=== PATIENT | female | born 1940 | race Caucasian/White ===

== ENCOUNTER → 2023-07-30 13:38 | Outpatient (REF) | payer MEDICARE, OTHER, SELFPAY | LOC: HWRAD 13:38 | PROVIDERS: ATTENDING PHYSICIAN Internal Medicine | DX: Z91.89 Other specified personal risk factors, not elsewhere classified (principal); M81.0 Age-related osteoporosis without current pathological fracture | CPT/HCPCS: 77080 ==

== ENCOUNTER → 2023-08-03 11:37 | Outpatient (REF) | payer MEDICARE, OTHER, SELFPAY | LOC: HWRAD 11:37 | PROVIDERS: ATTENDING PHYSICIAN Internal Medicine | DX: R42 Dizziness and giddiness (principal); D3A.8 Other benign neuroendocrine tumors; Z85.820 Personal history of malignant melanoma of skin; R05.3 Chronic cough | CPT/HCPCS: 71046 ==

== ENCOUNTER → 2024-02-11 11:16 | Outpatient (REF) | payer MEDICARE, OTHER, SELFPAY ==
[2024-02-11 16:33] LABS: ALT (SGPT) 15 U/L (0-35); AST (SGOT) 25 U/L (14-36); Albumin 4.5 g/dl (3.5-5.0); Alkaline Phosphatase 56 U/L (38-126); Blood Urea Nitrogen 27 mg/dl (7-17); Calcium 9.6 mg/dl (8.4-10.2); Carbon Dioxide 25 mmol/L (22-30); Chloride 102 mmol/L (98-107); Glucose 105 mg/dl (70-99); HDL Cholesterol 89 mg/dl; LDL Cholesterol, Calculated 95 mg/dl; Potassium 4.5 mmol/L (3.5-5.1); Sodium 139 mmol/L (135-145); Total Bilirubin 0.5 mg/dl (0.2-1.3); Total Cholesterol 198 mg/dl (50-199); Total Protein 6.9 g/dl (6.3-8.2); Triglyceride 71 mg/dl (10-149); Very Low Density Lipoprotein 14 mg/dl (0-30); eGFR > 60.00
[2024-02-11 16:40] LABS: % Basophils 0.5 % (0-2); % Eosinophils 0.5 % (0-6); % Immature Granulocytes 0.2 % (0-0.5); % Lymphocytes 28.1 % (20.5-51.1); % Monocytes 7.3 % (1.7-9.3); % Neutrophils 63.4 % (42.2-75.2); Absolute Lymphocytes 1.6 10^3/uL (1.2-3.4); Absolute Monocytes 0.4 10^3/uL (0.1-0.6); Absolute Neutrophils 3.6 10^3/uL (1.4-6.5); Hematocrit 33.5 % (37.0-47.0); Hemoglobin 11.5 g/dL (12.0-16.0); Mean Corp Hgb Conc. 34.3 g/dL (33.0-37.0); Mean Corpuscular Hgb 32.6 pg (27.0-31.0); Mean Corpuscular Volume 94.9 fL (81.0-99.0); Mean Platelet Volume 10.3 fL (7.4-10.4); Nucleated Red Blood Cells % 0 %; Platelet Count 229 10^3/uL (130-400); Red Blood Cell Count 3.53 10^6/uL (4.20-5.40); Red Cell Dist. Width 13.3 % (11.5-14.5); White Blood Cell Count 5.6 10^3/uL (4.8-10.8)
[2024-02-11 16:49] LABS: Free T3 2.79 pg/ml (2.77-5.27); Free T4 1.27 ng/dl (0.78-2.19)
[2024-02-11 17:03] LABS: TSH 1.55 uIU/ml (0.47-4.68)
[2024-02-12 09:38] LABS: Glycohemoglobin (HgbA1c) 5.5 % (4.0-5.6)
== END ==
LOC: HWLAB 11:16
PROVIDERS: ATTENDING PHYSICIAN Internal Medicine
DX: R73.01 Impaired fasting glucose (principal); E03.9 Hypothyroidism, unspecified; E78.5 Hyperlipidemia, unspecified; K21.9 Gastro-esophageal reflux disease without esophagitis; K52.9 Noninfective gastroenteritis and colitis, unspecified
CPT/HCPCS: 36415; 80053; 80061; 83036; 84439; 84443; 84481; 85025

== ENCOUNTER → 2024-04-04 15:08 | Outpatient (REF) | payer MEDICARE, OTHER, SELFPAY | LOC: HWRAD 15:08 | PROVIDERS: ATTENDING PHYSICIAN Internal Medicine | DX: M25.511 Pain in right shoulder (principal) | CPT/HCPCS: 73030 ==

== ENCOUNTER → 2024-08-10 12:29 | Outpatient (REF) | payer MEDICARE, OTHER, SELFPAY | LOC: HWRAD 12:29 | PROVIDERS: ATTENDING PHYSICIAN Internal Medicine | DX: M25.551 Pain in right hip (principal); Z85.820 Personal history of malignant melanoma of skin | CPT/HCPCS: 73502 ==

== ENCOUNTER → 2024-10-29 10:46 | Outpatient (REF) | payer MEDICARE, OTHER, SELFPAY | LOC: PAVMRI 10:46 | PROVIDERS: ATTENDING PHYSICIAN Orthopaedic Surgery; FAMILY PHYSICIAN Internal Medicine | DX: M54.16 Radiculopathy, lumbar region (principal); M25.559 Pain in unspecified hip; M25.551 Pain in right hip | CPT/HCPCS: 72148; 73721 ==

== ENCOUNTER → 2025-02-24 10:49 | Outpatient (REF) | payer MEDICARE, OTHER, SELFPAY ==
[2025-02-24 15:26] LABS: Hematocrit 32.4 % (37.0-47.0); Hemoglobin 10.8 g/dL (12.0-16.0); Mean Corp Hgb Conc. 33.3 g/dL (33.0-37.0); Mean Corpuscular Volume 99.1 fL (81.0-99.0); Nucleated Red Blood Cells % 0 %; Platelet Count 230 10^3/uL (130-400); Red Cell Dist. Width 14.0 % (11.5-14.5)
[2025-02-24 15:50] LABS: ALT (SGPT) 38 U/L (0-35); AST (SGOT) 23 U/L (14-36); Albumin 4.1 g/dl (3.5-5.0); Alkaline Phosphatase 78 U/L (38-126); Blood Urea Nitrogen 16 mg/dl (7-17); Calcium 9.2 mg/dl (8.4-10.2); Carbon Dioxide 22 mmol/L (22-30); Chloride 108 mmol/L (98-107); Glucose 106 mg/dl (70-99); HDL Cholesterol 81 mg/dl; LDL Cholesterol, Calculated 129 mg/dl; Potassium 4.2 mmol/L (3.5-5.1); Sodium 136 mmol/L (135-145); Total Protein 6.8 g/dl (6.3-8.2); Very Low Density Lipoprotein 18 mg/dl (0-30); eGFR > 60.00
[2025-02-24 16:02] LABS: TSH 1.71 uIU/ml (0.47-4.68)
[2025-02-24 16:16] LABS: Free T3 2.64 pg/ml (2.77-5.27)
== END ==
LOC: HWLAB 10:49
PROVIDERS: ATTENDING PHYSICIAN Internal Medicine
DX: E78.5 Hyperlipidemia, unspecified (principal); Z85.820 Personal history of malignant melanoma of skin; E03.9 Hypothyroidism, unspecified
CPT/HCPCS: 36415; 80053; 80061; 84439; 84443; 84481; 85025

== ENCOUNTER → 2025-03-07 10:36 | Outpatient (REF) | payer MEDICARE, OTHER, SELFPAY ==
[2025-03-07 11:49] LABS: Hematocrit 33.7 % (37.0-47.0); Hemoglobin 11.0 g/dL (12.0-16.0); Mean Corp Hgb Conc. 32.6 g/dL (33.0-37.0); Mean Corpuscular Volume 102.4 fL (81.0-99.0); Nucleated Red Blood Cells % 0 %; Platelet Count 320 10^3/uL (130-400); Red Cell Dist. Width 14.3 % (11.5-14.5); Reticulocyte Count 2.4 % (0.4-2.8); Urine Character Slightly Cloudy (Clear)
[2025-03-07 12:02] LABS: Urine Red Blood Cell 0-2 /HPF (0-2); Urine Squamous Cell 0-2 /LPF (Few); Urine White Cell 0-2 /HPF (0-5)
[2025-03-07 12:19] LABS: Iron 86 ug/dl (37-170)
[2025-03-07 12:28] LABS: Total Iron Binding Capacity 284 ug/dl (265-497)
[2025-03-07 13:02] LABS: Ferritin 299.0 ng/ml (11.1-264.0)
[2025-03-07 13:34] LABS: Folate 9.8 ng/ml (2.76-20); Vitamin B12 515 pg/ml (239-931)
== END ==
LOC: REG 10:36
PROVIDERS: ATTENDING PHYSICIAN Internal Medicine
DX: D64.9 Anemia, unspecified (principal); R82.90 Unspecified abnormal findings in urine; Z79.899 Other long term (current) drug therapy; E03.9 Hypothyroidism, unspecified; C7A.8 Other malignant neuroendocrine tumors; E78.5 Hyperlipidemia, unspecified; R73.01 Impaired fasting glucose; I10 Essential (primary) hypertension
CPT/HCPCS: 36415; 81003; 81015; 82607; 82728; 82746; 83540; 83550; 85025; 85045; 87086